=== PATIENT | male | born 1955 | race Caucasian/White ===

== ENCOUNTER 2017-04-21 01:18 | Emergency (ER) | payer MEDICAID, OTHER ==
[~2017-04-21] VITALS: Ht 175.3 cm; Wt 78.0 kg
[2017-04-21 01:34] VITALS: BP 138/78; PULSE 84; RESP 15; TEMP 98.7; O2SAT 99
--- NOTE | 2017-04-21 04:52 | PD ---
HPI Chief Complaint: Alcohol/Drug Intoxication Time Seen by Provider: 01:32 Travel History International Travel<30 days: No Contact w/Intl Traveler<30days: No Traveled to known affect area: No History of Present Illness HPI Patient is a 61-year-old male brought into the emergency Department under Schmidt act due to Public intoxication. Patient admits to drinking this evening, he will not quantify how much he has been drinking. He denies any physical complaints at this time. States he just wants to sleep. PFSH Past Medical History Autoimmune Disease: No Depression: Yes GERD: Yes Hypertension: Yes Psychiatric: Yes Respiratory: No Past Surgical History Genitourinary Surgery: Yes Social History Alcohol Use: Yes Tobacco Use: Yes Substance Use: Yes (MARIJUANA) Allergies-Medications (Allergen,Severity, Reaction): Coded Allergies: Sulfa (Sulfonamide Antibiotics) (Unverified Allergy, Severe, 04/21/17) cefotaxime (Unverified Allergy, Severe, 04/21/17) ciprofloxacin (Unverified Allergy, Severe, 04/21/17) sulfamethoxazole (Unverified Allergy, Severe, 04/21/17) trimethoprim (Unverified Allergy, Severe, 04/21/17) Reported Meds & Prescriptions Reported Meds & Active Scripts Active No Active Prescriptions or Reported Medications Review of Systems Except as stated in HPI: all other systems reviewed are Neg Psychiatric: Positive: Substance Abuse Physical Exam Narrative GENERAL: Well developed, well-nourished, alert male. Appears intoxicated. SKIN: Warm and dry. HEAD: Atraumatic. Normocephalic. EYES: Pupils equal and round. No scleral icterus. No injection or drainage. ENT: No nasal bleeding or discharge. Mucous membranes pink and moist. NECK: Trachea midline. No JVD. CARDIOVASCULAR: Regular rate and rhythm. RESPIRATORY: No accessory muscle use. Clear to auscultation. Breath sounds equal bilaterally. GASTROINTESTINAL: Abdomen soft, non-tender, nondistended. Hepatic and splenic margins not palpable. MUSCULOSKELETAL: Extremities without clubbing, cyanosis, or edema. No obvious deformities. NEUROLOGICAL: Awake and alert. No obvious cranial nerve deficits. Motor grossly within normal limits. Five out of 5 muscle strength in the arms and legs. Normal speech. PSYCHIATRIC: Appropriate mood and affect; insight and judgment normal. Data Data Last Documented VS Vital Signs Date Time Temp Pulse Resp B/P (MAP) Pulse Ox O2 Delivery O2 Flow Rate FiO2 04/21/17 01:34 98.7 84 15 138/78 (98) 99 Orders Orders Alcohol (Ethanol) (04/21/17 01:32) Labs Laboratory Tests Test 04/21/17 01:32 Ethyl Alcohol Level 282 MG/DL MDM Medical Decision Making Medical Screen Exam Complete: Yes Emergency Medical Condition: Yes Interpretation(s) Laboratory Tests Test 04/21/17 01:32 Ethyl Alcohol Level 282 MG/DL Vital Signs Date Time Temp Pulse Resp B/P (MAP) Pulse Ox O2 Delivery O2 Flow Rate FiO2 04/21/17 01:34 98.7 84 15 138/78 (98) 99 Differential Diagnosis Substance abuse versus metabolic abnormality versus intoxication versus other Narrative Course Patient is a 61-year-old male is brought into the emergency department under my her Xanax due to public intoxication. Patient's blood alcohol level is 282. His vital signs are stable, he is resting comfortably. When patient is clinically sober he will be discharged from the emergency department. Which should be around 11 AM this morning. Diagnosis Primary Impression: Acute alcohol intoxication Qualified Codes: F10.929 - Alcohol use, unspecified with intoxication, unspecified Referrals: [facility] Patient Instructions: Abuse of Alcohol (ED), Alcohol Intoxication (ED), General Instructions Additional Instructions: Follow-up at [facility] Avoid excessive intake of alcohol Drink more water Follow-up with your primary doctor Return to the emergency department for any new or worsening symptoms Med/Other Pt SpecificInfo: No Change to Meds Scripts No Active Prescriptions or Reported Meds Disposition: DISCHARGE HOME Condition: Stable Carri Harmon Apr 21, 2017 04:52
--- NOTE | 2017-04-21 09:43 | PD ---
Data Data Last Documented VS Vital Signs Date Time Temp Pulse Resp B/P (MAP) Pulse Ox O2 Delivery O2 Flow Rate FiO2 04/21/17 01:34 98.7 84 15 138/78 (98) 99 Orders Orders Alcohol (Ethanol) (04/21/17 01:32) Ed Discharge Order (04/21/17 09:42) Labs Laboratory Tests Test 04/21/17 01:32 Ethyl Alcohol Level 282 MG/DL MDM Supervised Visit with ANNEL: Yes Narrative Course I did not participate in care of patient, patient had already been discharged and has left the ER prior to my shift, I was asked to place an "ED Discharge" order. Diagnosis Primary Impression: Acute alcohol intoxication Qualified Codes: F10.929 - Alcohol use, unspecified with intoxication, unspecified [facility]: [facility] Patient Instructions: General Instructions, Alcohol Intoxication (ED), Abuse of Alcohol (ED) Departure Forms: Tests/Procedures Additional Instruction: Follow-up at [facility] Avoid excessive intake of alcohol Drink more water Follow-up with your primary doctor Return to the emergency department for any new or worsening symptoms Scripts No Active Prescriptions or Reported Meds Disposition: 01 DISCHARGE HOME Condition: Stable Vicky Elliott DO Apr 21, 2017 09:43
--- NOTE | 2017-04-21 09:43 | PD ---
Data Data Last Documented VS Vital Signs Date Time Temp Pulse Resp B/P (MAP) Pulse Ox O2 Delivery O2 Flow Rate FiO2 04/21/17 01:34 98.7 84 15 138/78 (98) 99 Orders Orders Alcohol (Ethanol) (04/21/17 01:32) Ed Discharge Order (04/21/17 09:42) Labs Laboratory Tests Test 04/21/17 01:32 Ethyl Alcohol Level 282 MG/DL MDM Supervised Visit with ANNEL: Yes Narrative Course I did not participate in care of patient, patient had already been discharged and has left the ER prior to my shift, I was asked to place an "ED Discharge" order. Diagnosis Primary Impression: Acute alcohol intoxication Qualified Codes: F10.929 - Alcohol use, unspecified with intoxication, unspecified [facility] Patient Instructions: General Instructions, Alcohol Intoxication (ED), Abuse of Alcohol (ED) Departure Forms: Tests/Procedures Additional Instruction: Follow-up at [facility] Avoid excessive intake of alcohol Drink more water Follow-up with your primary doctor Return to the emergency department for any new or worsening symptoms Scripts No Active Prescriptions or Reported Meds Disposition: 01 DISCHARGE HOME Condition: Stable Vicky Elliott DO Apr 21, 2017 09:43
== END 2017-04-21 09:46 | disposition home or self-care (01) ==
LOC: NEPD 01:18
DX: F10.129 Alcohol abuse with intoxication, unspecified (principal); Y90.8 Blood alcohol level of 240 mg/100 ml or more
CPT/HCPCS: 80307; 99283